=== PATIENT | female | born 1955 | race African-American/Black ===

== ENCOUNTER 2019-09-04 05:43 | Emergency (ER) | payer BC ==
[~2019-09-04] VITALS: Ht 162.6 cm; Wt 79.6 kg
[2019-09-04 08:02] VITALS: BP 138/79
== END 2019-09-04 08:05 | disposition home or self-care (01) ==
LOC: ER 05:43
DX: R07.81 Pleurodynia (principal); I10 Essential (primary) hypertension; F12.10 Cannabis abuse, uncomplicated; Z98.890 Other specified postprocedural states
CPT/HCPCS: 71101; 93005; 99283